=== PATIENT | male | born 1985 | race Two or more races ===

== ENCOUNTER 2021-06-07 11:44 | Emergency (ER) | payer BC ==
[~2021-06-07] VITALS: Ht 182.9 cm; Wt 77.1 kg
--- NOTE | 2021-06-07 12:02 | NUR ---
BLOOD NOTED IN HIS STOOL LAST NIGHT, C/O LOW ABDOMINAL PAIN SINCE 0300 TODAY. VITALS ARE WITHIN NORMAL LIMITS. BREATHING IS EVEN AND UNLABORED.
--- NOTE | 2021-06-07 12:09 | NUR ---
TO ER BED 13 AWAITING MD PANTOJA,NAD
--- NOTE | 2021-06-07 12:33 | NUR ---
DIRECTOR OF [employer] AT BEDSIDE
--- NOTE | 2021-06-07 12:33 | NUR ---
URINE SPECIMEN SENT TO LAB
[2021-06-07 12:40] LABS: BASOPHILS % (AUTO) 0.5 % (0.0-2.0); HEMATOCRIT 47 % (39-51); LYMPHOCYTES # (AUTO) 0.9 K/uL (0.8-4.8); LYMPHOCYTES % (AUTO) 10.6 % (20.0-44.0); MEAN CORPUSCULAR HGB CONC 34 g/dl (31.0-36.0); MEAN CORPUSCULAR VOLUME 91 fL (80-96); MONOCYTES # (AUTO) 0.9 K/uL (0.1-1.30); MONOCYTES % (AUTO) 9.7 % (2.0-12.0); NEUTROPHILS # (AUTO) 6.9 K/uL (1.8-8.9); NEUTROPHILS % (AUTO) 78.2 % (43.0-81.0); PLATELET COUNT (AUTO) 187 K/uL (150-450); RED BLOOD CELL COUNT(AUTO) 5.18 MIL/uL (4.5-6.0); WHITE BLOOD COUNT (AUTO) 8.8 K/uL (4.3-11.0)
--- NOTE | 2021-06-07 12:41 | NUR ---
DR BLANCA AT BEDSIDE FOR EVAL
[2021-06-07 12:49] LABS: CALCIUM, SERUM 9.2 mg/dL (8.5-10.1); CREATININE 0.9 mg/dL (0.6-1.3); POTASSIUM 4.4 mmol/L (3.5-5.1)
[2021-06-07] MEDS ORDERED: MAG HYDROX/AL HYDROX/SIMETH 30 ML UDC PO ONE (13:00)
[2021-06-07] MEDS ORDERED: FAMOTIDINE/PF INJ 20 MG/2 ML VIAL IV ONE (13:00)
[2021-06-07] MEDS ORDERED: FAMOTIDINE (20 MG) 20 MG TABLET ONE (13:03)
[2021-06-07] MEDS ORDERED: MAG HYDROX/AL HYDROX/SIMETH 30 ML UDC ONE (13:03)
[2021-06-07] MEDS ORDERED: FAMOTIDINE (20 MG) 20 MG TABLET PO ONE (13:30)
[2021-06-07] MEDS ORDERED: PHEN28OI9 RC (15:48)
[2021-06-07] MEDS ORDERED: LIDO30AD10 TP (15:48)
[2021-06-07 16:10] VITALS: BP 112/72
--- NOTE | 2021-06-07 16:10 | NUR ---
Patient discharged to home in stable condition. Written and verbal after care instructions given. Patient verbalizes understanding of instruction.
== END 2021-06-07 16:11 | disposition home or self-care (01) ==
LOC: ER 12:00
DX: K60.2 Anal fissure, unspecified (principal); F32.A Depression, unspecified; Z60.2 Problems related to living alone; Z79.899 Other long term (current) drug therapy
CPT/HCPCS: 36415; 74021; 80048-TC; 85025-TC